=== PATIENT | male | born 1985 | race Caucasian/White ===

== ENCOUNTER 2022-06-29 12:07 | Emergency (ER) | payer MEDICAID ==
[~2022-06-29] VITALS: Ht 182.9 cm; Wt 113.0 kg
[2022-06-29] MEDS ORDERED: OLANZAPINE 10 MG/VIAL IM ONE (14:15)
[2022-06-29 14:29] LABS: BASOPHILS % 0.4 % (0.0-2.0); EOSINOPHILS % 1.1 % (0.0-5.0); HEMATOCRIT. 45.7 % (42.0-52.0); HEMOGLOBIN. 15.3 g/dL (14.0-18.0); LYMPHOCYTES % 21.6 % (20.0-50.0); MEAN CORPUSCULAR HEMOGLOBIN 30.3 pg (28.0-32.0); MEAN CORPUSCULAR VOLUME 90.4 fL (80.0-94.0); MEAN PLATELET VOLUME 7.2 fl (7.4-10.4); MONOCYTES % 8.4 % (2.0-8.0); NEUTROPHILS % 68.5 % (40.0-76.0); PLATELET 310 x1000/uL (130-400); RED BLOOD CELL COUNT 5.06 mill/uL (4.7-6.1); RED CELL DISTRIBUTION WIDTH 13.9 % (11.6-14.6)
[2022-06-29 14:35] LABS: CLARITY URINE CLEAR (CLEAR); COLOR URINE STRAW (YELLOW); KETONES URINE NEGATIVE (NEGATIVE); LEUKOCYTE ESTERASE URINE NEGATIVE (NEGATIVE); NITRITE URINE NEGATIVE (NEGATIVE); OCCULT BLOOD URINE NEGATIVE (NEGATIVE); PROTEIN URINE NEGATIVE (NEGATIVE); SPECIFIC GRAVITY URINE 1.003 (1.005-1.030); UROBILINOGEN URINE 0.2 E.U./dL (0.2-1.0)
[2022-06-29 14:37] LABS: CHLORIDE 101 mEq/L (98-107)
[2022-06-29 14:47] LABS: *AMPHETAMINES SCREEN URINE NEGATIVE (NEGATIVE); *BARBITURATES SCREEN URINE NEGATIVE (NEGATIVE); *BENZODIAZEPINES SCREEN URINE NEGATIVE (NEGATIVE); *COCAINE SCREEN URINE NEGATIVE (NEGATIVE); CANNABINOID URINE SCREEN NEGATIVE (NEGATIVE); METHADONE URINE SCREEN NEGATIVE (NEGATIVE); OPIATES URINE SCREEN NEGATIVE (NEGATIVE); PHENCYCLIDINE URINE SCREEN NEGATIVE (NEGATIVE)
[2022-06-29 14:49] LABS: ETHANOL BLOOD < 10 mg/dL
[2022-06-29 15:36] LABS: PROTHROMBIN TIME 10.7 sec (9.6-11.0)
[2022-06-29] MEDS ORDERED: HALOPERIDOL LACTATE 5MG/ML VIAL IM ONE (22:30)
[2022-06-29] MEDS ORDERED: LORAZEPAM 2MG/ML CPJ IM ONE (22:30)
[2022-06-30] MEDS ORDERED: HALOPERIDOL LACTATE 5MG/ML VIAL IM NR (15:30)
[2022-06-30] MEDS ORDERED: HALOPERIDOL LACTATE 5MG/ML VIAL IM ONE (20:15)
[2022-06-30] MEDS ORDERED: LORAZEPAM 2MG/ML CPJ IM ONE (20:15)
[2022-06-30] MEDS: DIVALPROEX SODIUM 250MG DR TABLET PO SCH (21:30)
[2022-06-30] MEDS: QUETIAPINE FUMARATE 25MG TABLET PO SCH (21:30)
[2022-07-01] MEDS: DIVALPROEX SODIUM 250MG DR TABLET PO SCH ×2 (09:23→21:00)
[2022-07-01] MEDS: QUETIAPINE FUMARATE 25MG TABLET PO SCH (21:00)
[2022-07-02] MEDS ORDERED: OLANZAPINE 10 MG/VIAL IM ONE (06:00)
[2022-07-02] MEDS: DIVALPROEX SODIUM 250MG DR TABLET PO SCH ×2 (08:07→21:53)
[2022-07-02] MEDS: QUETIAPINE FUMARATE 25MG TABLET PO SCH (21:53)
[2022-07-03 03:00] VITALS: BP 108/56
== END 2022-07-03 07:24 | disposition home or self-care (01) ==
LOC: ER 13:17
DX: F23 Brief psychotic disorder (principal); R26.9 Unspecified abnormalities of gait and mobility; F91.8 Other conduct disorders; F17.210 Nicotine dependence, cigarettes, uncomplicated; Z75.1 Person awaiting admission to adequate facility elsewhere; Z20.822 Contact with and (suspected) exposure to COVID-19
CPT/HCPCS: 36415; 80053; 80305; 80320; 81003; 85025; 85610; 87426; 96372; 99285; C9803; J1630; J2060; J3490; U0003; U0005; G0480